=== PATIENT | female | born 1930 | race Caucasian/White ===

== ENCOUNTER 2016-09-23 08:01 | Inpatient (IN) ==
--- NOTE | 2016-09-23 09:15 | Diag Imaging Result Document ---
PROCEDURE NAME: XRAY HIP W/O PELVIS CUATE 3-4VWS - 09/23/2016 X-RAY HIP WITHOUT PELVIS BILATERAL, THREE TO FOUR VIEWS: INDICATION: Injury 1 to 2 weeks ago. FINDINGS: There are fractures involving the superior and inferior pubic rami on the right. These are not significantly displaced. The left pubic rami are intact. No femoral neck fracture. No dislocation. IMPRESSION: Fractures of the right superior and inferior pubic rami.
--- NOTE | 2016-09-23 09:33 | PROVIDER DOCUMENTATION ---
Addendum entered and electronically signed by Mateusz Bocanegra Scribe 09/23/16 12:24 : Progress - CONSULTS/PCP/HOSPITALIST Notification #1 *Consult/PCP/Hospitalist*: DR BAILEY Time Discussed: 12:24 Reason/Comments: DR KATZ SPOKE WITH DR BAILEY. DR BAILEY WILL ADMIT Original Note: HPI-Musculoskeletal Pain/Inj - GENERAL Source: patient - HX OF PRESENT ILLNESS-MUSKULOSKELTAL Quality of Pain: reports: aching Severity in ED: moderate Onset/Duration: 1 week ago Timing: still present Modifying Factors: improves with: nothing Any recent injury?: Yes Similar Symptoms Previously?: Yes Recently seen or treated by another doctor?: No - FALL INJURY Location of Pain/Injury: reports: pelvis (RT) Pain Radiation: reports: no radiation Reason for Fall: reports: lost balance Loss of Consciousness: no loss of consciousness Injury Associated Symptoms: reports: joint pain (RT HIP) - BACK & NECK PAIN/INJURY Context / Method of Injury: reports: fall - HIP/PELVIS PAIN/INJURY Hip Pain Location: reports: hip (R) Pain Radiation: reports: no radiation - LOWER EXTREMITY PAIN/INJURY Lower Extremities Pain: hip: right <Mateusz Bocanegra - Last Filed: 09/23/16 12:24> <Laureano Katz - Last Filed: 09/23/16 12:27> - GENERAL Chief Complaint: Hip Pain Stated Complaint: ext pain Time Seen by Provider: 09/23/16 08:14 - HX OF PRESENT ILLNESS-MUSKULOSKELTAL Nature of Presenting Problem: 85 YOWF PRESENTS TO ED VIA AMBULANCE. PT'S FAMILY STATES PT FELL 1 WEEK AGO, AND HAS HAD PAIN IN BOTH HIPS. PT WAS SEEN AT [facility]. PT'S FAMILY STATES PAIN HAS GOTTEN WORSE SO THEY BROUGHT HER IN TO BE CHECKED. (Mateusz Bocanegra) Review of Systems - Adult - REVIEW OF SYSTEMS - ADULT Constitutional: denies: chills, fever Eyes: reports: no symptoms reported Ears, Nose, Mouth & Throat: reports: no symptoms reported Cardiovascular: denies: chest pain, palpitations, syncope Respiratory: denies: cough, shortness of breath, wheezing Gastrointestinal: denies: abdominal pain, diarrhea, nausea, vomiting Genitourinary: reports: no symptoms reported Musculoskeletal: reports: joint pain (RT HIP). denies: back pain, neck pain Integumentary: reports: no symptoms reported Neurological: reports: loss of balance. denies: dizziness/vertigo, headache/ migraines, syncope Psychiatric: reports: no symptoms reported Endocrine: reports: no symptoms reported Hematologic/Lymphatic: reports: no symptoms reported Allergic/Immunologic: reports: no symptoms reported All Other Systems: Reviewed and Negative <Mateusz Bocanegra - Last Filed: 09/23/16 12:24> Past History - Adult - PAST MEDICAL HISTORY-ADULT Review of Records: reports: Nursing Assessment Review, Medications Reviewed Cardiovascular: reports: HTN Musculoskeletal: reports: osteoporosis Endocrine/Immune: reports: thyroid disorder - IMMUNIZATION STATUS Childhood Immunizations: See Nurse Assessment Flu Vaccine: See Nurse Assessment - SOCIAL HISTORY Smoking: denies Substance Use: denies Alcohol Use Frequency: never Living Situation: family <Mateusz Bocanegra - Last Filed: 09/23/16 12:24> Physical Exam-Injury Related - Physical Exam-Injury Related General Appearance: alert, moderate distress Eyes: PERRL/EOMI, pink conjunctivae Head, Ears, Nose, Mouth & Throat: normocephalic/atraumatic, moist mucous membranes Neck: non-tender, full range of motion, supple Respiratory: chest non-tender, lungs clear, normal breath sounds Cardiovascular: normal peripheral pulses, tachycardia Abdominal Exam: normal bowel sounds, non tender, soft Back Exam: normal inspection, no CVA tenderness, no vertebral tenderness Extremity: other (RT HIP PAIN FROPM FALL 1 WEEK PRIOR) Integumentary: normal color, warm/dry Neurologic: grossly normal Psych/Mental Status: oriented x 3 - Glascow Coma Score Best Eye Response ([place]): (4) open spontaneously Best Verbal Response ([place]): (5) oriented Best Motor Response ([place]): (6) obeys commands <Mateusz Bocanegra - Last Filed: 09/23/16 12:24> Progress - XRAY 1 XRAY: Bilateral XRAY Study: Chest XRAY Interpretation: INTERSTITIAL FIBROSIS 2 XRAY: Right XRAY Study: Pelvis XRAY Interpretation: FX OF THE RT SUPERIOR AND INFERIOR PUBIC RAMI <Mateusz Bocanegra - Last Filed: 09/23/16 12:24> <Laureano Katz - Last Filed: 09/23/16 12:27> - PLAN OF CARE/RESULTS Progress/Plan/Lab Results: Laboratory Tests 09/23/16 09/23/16 09/23/16 10:37 10:40 10:40 WBC 17.17 H RBC 3.56 L Hgb 10.8 L Hct 32.4 L MCV 91.0 MCH 30.3 MCHC 33.3 RDW Std Deviation 13.7 Plt Count 371 MPV 8.9 Immature Gran % (Auto) 0.2 Neut % (Auto) 91.0 H Lymph % (Auto) 3.9 L [place] % (Auto) 4.7 Eos % (Auto) 0.1 Baso % (Auto) 0.1 Immature Gran # (Auto) 0.04 Neut # (Auto) 15.62 H Lymph # (Auto) 0.67 L [place] # (Auto) 0.81 H Eos # (Auto) 0.01 Baso # (Auto) 0.02 Sodium 135 L Potassium 3.0 L Chloride 98 Carbon Dioxide 23 L Anion Gap 14 BUN 9 Creatinine 0.4 L Estimated GFR/1.73 m2 > 60 BUN/Creatinine Ratio 23 Glucose 98 Calculated Osmolality 269 Calcium 9.1 Total Bilirubin 1.90 H AST 22 ALT 25 Alkaline Phosphatase 153 H Total Protein 6.8 Albumin 4.0 Globulin 3.0 Albumin/Globulin Ratio 1.0 Plasma Lactate Urine Source CATH Urine Color YELLOW Urine Clarity CLEAR Urine pH 8.0 Ur Specific [place] 1.010 Urine Protein NEGATIVE Urine Ketones 1+(Small) A Urine Blood NEGATIVE Urine Nitrite NEGATIVE Urine Bilirubin NEGATIVE Urine Urobilinogen NORMAL Urine Microscopic RBC Not Reportable Urine WBC NEGATIVE Ur Epithelial Cells <10 Urine Glucose NEGATIVE 09/23/16 11:15 WBC RBC Hgb Hct MCV MCH MCHC RDW Std Deviation Plt Count MPV Immature Gran % (Auto) Neut % (Auto) Lymph % (Auto) [place] % (Auto) Eos % (Auto) Baso % (Auto) Immature Gran # (Auto) Neut # (Auto) Lymph # (Auto) [place] # (Auto) Eos # (Auto) Baso # (Auto) Sodium Potassium Chloride Carbon Dioxide Anion Gap BUN Creatinine Estimated GFR/1.73 m2 BUN/Creatinine Ratio Glucose Calculated Osmolality Calcium Total Bilirubin AST ALT Alkaline Phosphatase Total Protein Albumin Globulin Albumin/Globulin Ratio Plasma Lactate 1.1 Urine Source Urine Color Urine Clarity Urine pH Ur Specific [place] Urine Protein Urine Ketones Urine Blood Urine Nitrite Urine Bilirubin Urine Urobilinogen Urine Microscopic RBC Urine WBC Ur Epithelial Cells Urine Glucose Orders Category Date Time Status CHEST-1 VIEW [RAD] Stat Exams 09/23/16 11:05 Taken XRAY HIP W/O PELVIS CUATE 3-4VWS [RAD] Stat Exams 09/23/16 08:27 Draft CBC WITH DIFF [HEME] Stat Lab 09/23/16 10:40 Results COMPREHENSIVE METABOLIC PANEL [CHEM] Stat Lab 09/23/16 10:40 Completed LACTATE, PLASMA [CHEM] Stat Lab 09/23/16 11:[address] W/POSS RFLX CULT [URINALYSIS] Stat Lab 09/23/16 10:37 Completed Tramadol [Ultram] Med 09/23/16 11:48 Discontinued 25 mg PO NOW ONE Vital Signs - 24 hr 09/23/16 09/23/16 09/23/16 08:05 08:15 10:09 Temperature 97.7 F 97.1 F L Pulse Rate 91 H 95 H Respiratory 18 20 Rate Blood Pressure 144/89 162/93 O2 Sat by Pulse 95 95 Oximetry (Mateusz Bocanegra) Departure <Mateusz Bocanegra - Last Filed: 09/23/16 12:24> - Departure Time of Disposition Order: 12:21 Certified Medical Emergency: Emergent <Laureano Katz - Last Filed: 09/23/16 12:27> - Departure DIAGNOSIS: Pneumonitis Closed fracture of single pubic ramus of pelvis Qualifiers: Encounter type: subsequent encounter Laterality: right Fracture healing: with routine healing Qualified Code(s): S32.501D - Unspecified fracture of right pubis, subsequent encounter for fracture with routine healing Disposition: ADMITTED INPATIENT 09 Condition: Stable Referrals: Valarie Black CRNP [Primary Care Provider] - Attestation - Scribe Verification/Attestation Scribe:: Mateusz Bocanegra Acting as Scribe for:: Laureano Katz Scribe documention review:: This chart was documented by a scribe and accurately reflects the service the provider performed and the decisions made by the provider. <Mateusz Bocanegra - Last Filed: 09/23/16 12:24> Physician Attestation - Physician Attestation I, the provider, attest to the following statement:: Laureano Katz Physician documentation Attestation:: This documentation recorded by the scribe accurately reflects the service I personally performed and the decisions made by me. <Laureano Katz - Last Filed: 09/23/16 12:27>
[2016-09-23 10:47] LABS: URINE CULTURE PL NEEDED? NO; URINE SOURCE CATH
[2016-09-23 10:49] LABS: BILIRUBIN URINE NEGATIVE (NEGATIVE); BLOOD URINE NEGATIVE (NEGATIVE); CLARITY CLEAR (CLEAR); COLOR YELLOW; GLUCOSE URINE NEGATIVE (NEGATIVE); LEUKOCYTES URINE NEGATIVE (NEGATIVE); NITRITE URINE NEGATIVE (NEGATIVE); PROTEIN URINE NEGATIVE (NEGATIVE); UROBILINOGEN URINE NORMAL
[2016-09-23 10:54] LABS: BASO% 0.1 % (0.0-0.8); EOS# 0.01 X1000 (0.0-0.7); EOS% 0.1 % (0.0-10.0); HEMATOCRIT 32.4 % (37.0-47.0); HEMOGLOBIN 10.8 g/dL (12.0-16.0); IMM GRAN# 0.04 X1000 (0.0-0.04); IMM GRAN% 0.2 % (0.0-0.5); LYMPH# 0.67 X1000 (1.2-3.4); LYMPH% 3.9 % (20.5-51.1); MANUAL DIFF NEEDED? YES; MCH 30.3 PG (27-31); MCHC 33.3 g/dL (33-37); MONO# 0.81 X1000 (0.11-0.59); MONO% 4.7 % (1.7-9.3); MPV 8.9 FL (7.4-10.4); PLT 371 X1000 (130-400); RBC 3.56 XMIL (4.2-5.4)
[2016-09-23 10:56] LABS: URINE EPITHELIAL CELLS <10 /HPF (<10)
[2016-09-23 11:04] LABS: AGAP 14; ALKALINE PHOSPHATASE 153 U/L (32-104); BUN 9 mg/dL (8-22); CALCIUM 9.1 mg/dL (8.8-10.2); CHLORIDE 98 mmol/L (98-107); COSMO 269; GOT 22 U/L (10-30); GPT 25 U/L (10-36); SODIUM 135 mmol/L (136-145); TCO2 23 mmol/L (25-35); TOTAL PROTEIN 6.8 g/dL (6.3-8.3)
[2016-09-23] MEDS ORDERED: ULTRAM PO ONE (11:48)
[2016-09-23 12:15] LABS: BANDS 2 % (0-1); LYMPHS 2 % (21-51); MONO 5 % (1-9)
[2016-09-23] MEDS ORDERED: ZITHROMAX PO ONE (12:23)
[2016-09-23] MEDS ORDERED: ROCEPHIN 1 GM/NS 50 ML IV SCH (12:30)
--- NOTE | 2016-09-23 12:48 | Diag Imaging Result Document ---
PROCEDURE NAME: CHEST-1 VIEW - 09/23/2016 CHEST, SINGLE VIEW: INDICATION: Leukocytosis. COMPARISON: 03/16/2016. FINDINGS: There is cardiomegaly. The pulmonary vasculature is not congested. There are mildly prominent interstitial markings likely related to fibrosis. No focal consolidation is identified. IMPRESSION: Cardiomegaly. Suspect mild interstitial fibrosis.
[2016-09-23] MEDS ORDERED: ULTRAM PO PRN (13:57)
[2016-09-23] MEDS ORDERED: TYLENOL PO PRN (17:07)
[2016-09-23] MEDS ORDERED: ZOFRAN IV PRN (17:07)
[2016-09-23] MEDS: ULTRAM PO SCH ×2 (19:27→20:53)
[2016-09-23] MEDS: MIRALAX PO SCH ×2 (19:28→20:53)
[2016-09-23] MEDS ORDERED: NS 500 ML IV SCH (20:45)
[2016-09-24] MEDS: ULTRAM PO SCH ×3 (04:02→20:24)
[2016-09-24 07:02] LABS: HEMATOCRIT 30.3 % (37.0-47.0); HEMOGLOBIN 9.9 g/dL (12.0-16.0); MCHC 32.7 g/dL (33-37); MCV 91.8 FL (81-99); MPV 9.6 FL (7.4-10.4); RBC 3.3 XMIL (4.2-5.4)
[2016-09-24 07:25] LABS: AGAP 14; BUN 17 mg/dL (8-22); CALCIUM 8.7 mg/dL (8.8-10.2); CHLORIDE 98 mmol/L (98-107); COSMO 271; SODIUM 135 mmol/L (136-145); TCO2 23 mmol/L (25-35)
--- NOTE | 2016-09-24 08:37 | PROGRESS NOTE ---
DATE: 09/24/2016 SUBJECTIVE: Patient without new complaints this morning. OBJECTIVE: Vital Signs: On physical, temp 97.3, pulse 94, respiratory 18, BP 136/85 to 148/70. General: Patient is lying in bed. She is currently in no respiratory distress. Does complain of pain in both hips. HEENT: Normocephalic. Neck: Supple. CV: Regular rate. Chest: Relatively clear. Abdomen: Soft. Extremities: No edema. LABS: Currently pending. ASSESSMENT: 1. Leukocytosis of undetermined origin. 2. Known interstitial fibrosis. 3. Frequent falls with gait instability. 4. Fracture of the right superior and inferior pubic rami. 5. Hypertension. 6. Hypothyroidism. 7. Hypokalemia. 8. Hyperbilirubinemia. PLAN: We will continue Rocephin until blood cultures and urine cultures are negative. We will recheck her will white count. Continue to follow. We will get physical therapy involved. Further orders as needed.
[2016-09-24] MEDS ORDERED: SYNTHROID PO SCH (09:00)
[2016-09-24] MEDS ORDERED: MORPHINE IV ONE (14:32)
[2016-09-24] MEDS ORDERED: ZANAFLEX PO SCH (14:45)
[2016-09-24] MEDS: COLACE PO SCH (15:06)
[2016-09-24] MEDS: MIRALAX PO SCH ×2 (15:06→20:23)
[2016-09-24] MEDS: PRINIVIL PO SCH (15:49)
[2016-09-24] MEDS: ROCEPHIN 1 GM/NS 50 ML IV SCH (15:50)
[2016-09-24] MEDS ORDERED: KLOR-CON PO ONE ×2 (16:53→18:15)
--- NOTE | 2016-09-24 17:24 | HISTORY AND PHYSICAL ---
CHIEF COMPLAINT: Hip pain. Suprapubic pain. HISTORY OF PRESENT ILLNESS: This is a very pleasant, 85-year-old female, who presented to the emergency room complaining of increasing pain in pelvis and bilateral hip pain, but primarily right greater than left. Apparently the patient fell a week ago. At that time she was seen in the emergency room. Hip and pelvis x-ray, revealed osteopenia, but no definite acute osseous abnormality. At that time, she was discharged home, but due to increasing pain she returned. Hip x-ray on 09/23 revealed fractures involving the superior and inferior pubic rami on the right that are not significantly displaced with the left pubic rami intact. No femoral neck fractures or dislocation. Chest x-ray also revealed prominent interstitial markings and cardiomegaly. She did have a white count of 17 with a potassium of 3. She was admitted for further evaluation and treatment. PAST MEDICAL HISTORY: Hypertension. Hypothyroid. Osteoporosis. PAST SURGICAL HISTORY: Appendectomy, hysterectomy, tonsillectomy, numerous back surgeries. SOCIAL HISTORY: She denies alcohol, tobacco, or illicit drug use. ALLERGIES: Flagyl which causes nausea and Phenergan with unknown reaction. HOME MEDICATIONS: MiraLAX 17 g daily, Colace 100 daily, Ultram 50 b.i.d. p.r.n., Synthroid 50 mcg daily, lisinopril 20 daily. REVIEW OF SYSTEMS: A 14 point review of systems is discussed with the patient with pertinent positives stated in the HPI. She denied chest pain, palpitations, dizziness, syncope, cough, shortness of breath, dyspnea on exertion, PND, orthopnea, fever, chills, nausea, vomiting, diarrhea, constipation, black or bloody vomitus, black or bloody stools, hematuria, dysuria, frequency, urgency. PHYSICAL EXAMINATION: GENERAL: This is an 85-year-old female who was lying in the bed, in no distress. VITAL SIGNS: Blood pressure is 148/70, with a heart rate of 94, respirations are 18, temperature is 98.4 degrees oral with room air saturations of 95-96%. HEENT: Head is normocephalic, atraumatic. Pupils equal, round, react to light. EOMs are intact. Sclerae anicteric. Mucous membranes are moist. NECK: Supple with trachea midline. CARDIOVASCULAR: Regular rate and rhythm, S1, S2 appreciated. PULMONARY: Breath sounds are clear. No increased work of breathing noted. GASTROINTESTINAL: Abdomen soft, nontender, nondistended with bowel sounds in all 4 quadrants. MUSCULOSKELETAL: Good range of motion of upper extremities. Lower extremities are limited to pain. EXTREMITIES: No clubbing, cyanosis, or edema. Calves are nontender. Pulses are palpable x4. SKIN: Warm and dry. NEUROLOGIC: She is alert and oriented x3. DIAGNOSTICS: Chest x-ray revealed interstitial fibrosis. Pelvis x-ray reveals fracture of the right superior and inferior pubic rami. WBC is 17.17, with a hemoglobin of 10.8, hematocrit 32.4, and platelets of 371,000. Sodium is 135, potassium 3, BUN 9, creatinine 0.4 with a glucose of 98. Urinalysis is essentially negative. ASSESSMENT: 1. Right inferior, superior and inferior pubic rami fracture. 2. Pneumonitis. 3. Leukocytosis. 4. Hypokalemia. 5. Hypertension. 6. History of osteopenia. 7. Hypothyroid. PLAN: She will be admitted to the hospital. Placed on telemetry. We will consult physical therapy. We will confirm her medications and continue as appropriate. She was given azithromycin in the emergency room. The patient did state that she has been having trouble swallowing since she fell last week, so we will give Rocephin IV at present and then have a swallow study performed. We will give a saline bolus and then gently hydrate. Further treatments pending hospital course. Dictated by ISMAEL Morse for Deyvi Robles MD
[2016-09-25] MEDS: ULTRAM PO SCH ×3 (04:49→21:00)
[2016-09-25 05:49] LABS: HEMATOCRIT 28.6 % (37.0-47.0); HEMOGLOBIN 9.2 g/dL (12.0-16.0); MCH 29.3 PG (27-31); MCHC 32.2 g/dL (33-37); MCV 91.1 FL (81-99); MPV 9.4 FL (7.4-10.4); RBC 3.14 XMIL (4.2-5.4)
[2016-09-25 05:52] LABS: AGAP 11; BUN 17 mg/dL (8-22); CALCIUM 8.4 mg/dL (8.8-10.2); CHLORIDE 100 mmol/L (98-107); COSMO 265; POTASSIUM 3.6 mmol/L (3.5-5.1); SODIUM 132 mmol/L (136-145); TCO2 21 mmol/L (25-35)
--- NOTE | 2016-09-25 08:18 | PROGRESS NOTE ---
DATE: 09/25/2016 SUBJECTIVE: Patient notes she is feeling a little bit better. Still having pain. Still having difficulty ambulating. Still requires lots of assistance. PHYSICAL: Vital Signs: Temperature 98, Pulse 93, respiratory 18, BP 124/74, saturation 95% on room air. General: Patient well developed, elderly female who is currently in no respiratory distress. She is pleasant to talk with. HEENT: Normocephalic. Neck: Supple. CV: Regular rate. Chest: Relatively clear. LABS: WBCs 10, hemoglobin and hematocrit 9 and 28. Sodium 132, potassium 3.6, calcium 8.4. ASSESSMENT: 1. Leukocytosis resolved. 2. Hyponatremia stable. 3. Hypokalemia, improved. 4. Hypocalcemia. Continue to replace. 5. Hypertension, stable. 6. Hypothyroidism, stable. 7. Right inferior/superior pubic rami fracture. PLAN: We will continue physical therapy. Patient will need rehab. We will continue on antibiotics for a total 7 days to treat a presumed urinary tract infection. However, certainly could have had a reactionary leukocytosis secondary to her pubic rami fracture.
[2016-09-25] MEDS: COLACE PO SCH (10:13)
[2016-09-25] MEDS: PRINIVIL PO SCH (10:13)
[2016-09-25] MEDS: KLOR-CON PO SCH (10:14)
[2016-09-25] MEDS: ROCEPHIN 1 GM/NS 50 ML IV SCH (13:12)
[2016-09-25] MEDS: MIRALAX PO SCH ×2 (13:13→20:59)
--- NOTE | 2016-09-25 14:53 | DISCHARGE SUMMARY ---
ADMISSION DATE: 09/23/2016 DISCHARGE DATE: 09/26/2016 DIAGNOSES: 1. Right inferior and superior pubic rami fractures, nondisplaced. 2. Leukocytosis, resolved. 3. Hyponatremia, stable. 4. Hypokalemia, resolved. 5. Hypocalcemia, resolved. 6. Hypertension, stable. 7. Hypothyroidism, stable. DIAGNOSTICS: On 09/23/2016, bilateral hip without pelvis, fractures to the right superior and inferior pubic rami. On 09/23/2016, chest x-ray, cardiomegaly, suspect mild interstitial fibrosis. No focal consolidation is identified. MICROBIOLOGY: Blood cultures are negative x2. HOSPITAL COURSE: Ms. Fernandez presented to the emergency room complaining of hip pain and suprapubic pain. She had fallen 1 week prior. She had been evaluated in the emergency room. X-rays at that time revealed osteopenia, but no definite acute osseous abnormality. She was discharged home, but the pain has increased over the week to the point of hindering her ambulation, and she did have some generalized weakness. She was found to have superior and inferior pubic rami fractures that were not significantly displaced, with the left pubic rami intact, as well as pneumonitis. She was started on Rocephin IV, pain management with Ultram. We did follow electrolytes and replete as appropriate. As stated above, blood cultures were negative. She was evaluated by physical therapy who felt that the patient needed inpatient rehab. The patient did state that she is having troubles with swallowing and that she has had it for at least 1 week and maybe longer. She was evaluated by speech therapy who stated that oral and pharyngeal phase of swallow appeared within normal limits, and she recommended a mechanical soft diet with aspiration precautions. The patient has tolerated this well, and she has had no difficulty swallowing her medications nor her diet served. PHYSICAL EXAMINATION: Cardiovascular: Regular rate and rhythm. S1 and S2 appreciated. Pulmonary: Breath sounds are clear with no increased work of breathing noted. Gastrointestinal: Abdomen is soft, nontender, nondistended, with bowel sounds in all 4 quadrants. Neurologic: She is alert and oriented. DISCHARGE MEDICATIONS: Ultram 50 mg p.o. every 8 hours, Klor-Con 40 mEq daily, MiraLAX 17 grams b.i.d., Prinivil 20 mg daily, Synthroid 50 mcg daily, Colace 100 mg daily. DISCHARGE ACTIVITY: Per physical therapy and recommendations at rehab. DISCHARGE DIET: Mechanical soft with supplements with meals and at bedtime. DISCHARGE VITAL SIGNS: Blood pressure is 152/77 with a heart rate of 88, respirations are 18, temperature is 97.7 degrees orally with room air saturations 95% to 98%. DISPOSITION: She will be discharged to rehab via EMS transport with family members present. TIME SPENT: Greater than 30 minute discharge. Dictated by ISMAEL Morse for Deyvi Robles MD
[2016-09-25] MEDS: SYNTHROID PO SCH (22:36)
[2016-09-26 06:01] LABS: HEMATOCRIT 32.4 % (37.0-47.0); HEMOGLOBIN 10.6 g/dL (12.0-16.0); MCH 29.9 PG (27-31); MCHC 32.7 g/dL (33-37); MCV 91.3 FL (81-99); MPV 9.4 FL (7.4-10.4); RBC 3.55 XMIL (4.2-5.4)
[2016-09-26] MEDS: ULTRAM PO SCH (06:02)
[2016-09-26] MEDS: SYNTHROID PO SCH (06:03)
[2016-09-26 07:22] VITALS: BP 149/92
[2016-09-26] MEDS: COLACE PO SCH (08:09)
[2016-09-26] MEDS: MIRALAX PO SCH (08:09)
[2016-09-26] MEDS: KLOR-CON PO SCH (08:09)
[2016-09-26] MEDS: PRINIVIL PO SCH (08:10)
[2016-09-26 08:57] LABS: AGAP 15; BUN 16 mg/dL (8-22); CALCIUM 8.4 mg/dL (8.8-10.2); CHLORIDE 99 mmol/L (98-107); COSMO 271; SODIUM 135 mmol/L (136-145); TCO2 21 mmol/L (25-35)
--- NOTE | 2016-09-26 09:38 | PROGRESS NOTE ---
DATE: 09/26/2016 SUBJECTIVE: Patient is feeling fine. She is ready to go to rehab today. OBJECTIVE: Vital Signs: On physical, temp 97.5, pulse 81, respiratory 16, BP 132/91, saturation 98% on 2 L. General: Patient is well developed, well nourished. She is in no respiratory distress. She is awake, alert. Neck: Supple. CV: Regular rate. Chest: Clear. ASSESSMENT: 1. Right inferior and superior pubic rami fracture. 2. Leukocytosis, resolved. 3. Hypokalemia, resolved. 4. Hypertension, stable. 5. Hypothyroidism. PLAN: Hopefully patient will be able to discharge later this afternoon to rehab. No further orders needed.
--- NOTE | 2016-10-04 14:32 | DISCHARGE SUMMARY ---
ADMISSION DATE: 09/23/2016 DISCHARGE DATE: 09/26/2016 DISCHARGE SUMMARY ADDENDUM: The patient, as noted on the HPI and discharge summary, had superior and inferior pubic rami fractures secondary to a fall, which would be traumatic. He has known osteopenia which also would be likely contributing to his current fracture.
== END 2016-09-26 12:05 | DRG 543 ==
LOC: P.ED 08:01 → P.MEDSURG 12:23
PROVIDERS: ATTEND Family Medicine
DX: M80.851A Other osteoporosis with current pathological fracture, right femur, initial encounter for fracture (principal); E87.1 Hypo-osmolality and hyponatremia; S32.591A Other specified fracture of right pubis, initial encounter for closed fracture; J84.10 Pulmonary fibrosis, unspecified; E83.51 Hypocalcemia; S32.592A Other specified fracture of left pubis, initial encounter for closed fracture; I10 Essential (primary) hypertension; E87.6 Hypokalemia; E03.9 Hypothyroidism, unspecified; R26.9 Unspecified abnormalities of gait and mobility; Z79.899 Other long term (current) drug therapy; Z91.81 History of falling; W19.XXXA Unspecified fall, initial encounter
CPT/HCPCS: 36415; 51702; 71010; 73522; 80048; 80053; 81001; 82948; 83605; 84443; 85025; 85027; 87040; 96365; J0696; J2270; J7040; 92610-GN; 97530-GP